=== PATIENT | male | born 1980 | race Caucasian/White ===

== ENCOUNTER 2022-04-11 11:07 | Outpatient (CLI) | payer OTHER, SELFPAY ==
[2022-04-11 16:11] LABS: Albumin* 4.3 g/dL (3.3-5.0); Chloride* 102 mmol/L (96-114); Potassium* 4.4 mmol/L (3.6-5.1); Sodium* 139 mmol/L (135-149)
[2022-04-11 16:13] LABS: Creatinine* 0.9 mg/dL (0.5-1.5); Estimated Glomerular Filt Rate 111 ml/min
[2022-04-11 16:14] LABS: Alanine Aminotransferase* 65 U/L (4-50); Alkaline Phosphatase* 64 U/L (40-150); Aspartate Amino Transferase* 39 U/L (12-35); Bilirubin Total* 0.1 mg/dL (0.1-1.5); Blood Urea Nitrogen* 17 mg/dL (5-24); Calcium* 9.1 mg/dL (8.4-10.6); Carbon Dioxide* 28 mmol/L (20-32); Glucose* 128 mg/dL (60-115); Total Protein* 7.5 g/dL (6.0-8.3)
[2022-04-11 16:43] LABS: PSA Diagnostic* 0.14 ng/mL (0.10-4.00)
== END 2022-04-11 11:08 | disposition home or self-care (01) ==
PROVIDERS: Visit Provider Family Medicine
DX: R33.9 Retention of urine, unspecified (principal); R03.0 Elevated blood-pressure reading, without diagnosis of hypertension; R30.0 Dysuria; Z12.5 Encounter for screening for malignant neoplasm of prostate
CPT/HCPCS: 80053; 84153